=== PATIENT | female | born 1950 | race Two or more races ===

== ENCOUNTER 2023-11-12 19:58 | Emergency (ER) | payer OTHER ==
[~2023-11-12] VITALS: Ht 152.4 cm; Wt 45.4 kg
[2023-11-12] MEDS ORDERED: NAMENDA1 EACH PO (20:30)
[2023-11-12] MEDS ORDERED: EXELON1 EAC1 TD (20:31)
[2023-11-12] MEDS ORDERED: COZAAR25 MG PO (20:32)
[2023-11-12] MEDS ORDERED: SYNTHROID100 MCG PO (20:32)
[2023-11-12 22:54] LABS: HEMATOCRIT 32.7 % (36.0-45.00); HEMOGLOBIN 11.3 g/dL (12.0-15.00); MEAN CELL VOLUME 91.6 fL (80.00-100.00); MEAN CORPUSCULAR HEMOGLOBIN 31.7 pg (27.00-32.0); MEAN CORPUSCULAR HGB CONC 34.5 g/dl (32.0-36.0); PLATELET COUNT 263 K/uL (150-450); RED BLOOD COUNT 3.57 M/uL (4.00-6.00)
== END 2023-11-13 00:15 | disposition home or self-care (01) ==
LOC: ER 19:59
PROVIDERS: General Practice
DX: M25.531 Pain in right wrist (principal); Z91.013 Allergy to seafood; Z91.018 Allergy to other foods
CPT/HCPCS: 36415; 73100; 96365; 96372; 99283; J2360; J3490

== ENCOUNTER 2025-09-11 15:19 | Outpatient (CLI) | payer OTHER ==
[~2025-09-11 15:19] MED LIST: COZAAR25 MG PO; EXELON1 EAC1 TD; NAMENDA1 EACH PO; SYNTHROID100 MCG PO
== END 2025-09-11 15:31 | disposition home or self-care (01) ==
LOC: RAD 15:19
DX: M13.141 Monoarthritis, not elsewhere classified, right hand (principal); M13.142 Monoarthritis, not elsewhere classified, left hand

== ENCOUNTER 2025-09-11 15:48 | Outpatient (CLI) | payer OTHER ==
[2025-09-11 16:07] LABS: BASO % 0.5 % (0.1-1.2); EOS # 0.13 (0.04-0.54); EOS % 1.4 % (0.7-7.0); LYMPH # 2.42 (1.18-3.74); LYMPH % 25.6 % (19.3-53.1); MEAN PLATELET VOLUME 9.00 fl (9.4-12.4); MONO # 1.02 (0.24-0.82); MONO % 10.8 % (4.7-12.5); NEUT # 5.82 (1.56-6.13); NEUT % 61.4 % (34.0-71.1); RED CELL DISTRIBUTION WIDTH 12.7 % (11.6-14.4)
[2025-09-11 16:12] LABS: ERYTHROCYTE SEDIMENTATION RATE 57 mm/hr (0-30)
== END 2025-09-11 15:50 | disposition home or self-care (01) ==
LOC: LAB 15:48
PROVIDERS: ATTEND Internal Medicine Rheumatology
DX: M06.4 Inflammatory polyarthropathy (principal)